=== PATIENT | female | born 1965 | race American Indian/Alaskan Native ===

== ENCOUNTER 2019-08-14 20:51 | Observation (INO) | payer MEDICAID ==
[2019-08-14] MEDS ORDERED: HYDROmorphone 1 MG/ML Syringe IVPUSH ONE (21:29)
--- NOTE | 2019-08-14 21:35 | EDM.PDOC ---
ED HPI GENERAL MEDICAL PROBLEM - General Chief Complaint: Lower Extremity Injury/Pain Stated Complaint: FALL Time Seen by Provider: 08/14/19 21:00 Source of Information: Reports: Patient History Limitations: Reports: No Limitations - History of Present Illness INITIAL COMMENTS - FREE TEXT/NARRATIVE: Pt. states that she fell down the last step at her house and fell onto her L knee. She states that she was unable to move the extremity after the fall. EMS was summoned. She was given fentanyl 100mcg IV for pain control. She denies striking her head. No neck pain. She denies any chest pain, shortness of breath, or LOC prior to the fall; it was a purely mechanical fall. Pt. denies any numbness/tingling in the extremity. Onset: Today Location: Reports: Lower Extremity, Left Quality: Reports: Sharp, Throbbing - Related Data Allergies Allergy/AdvReac Type Severity Reaction Status Date / Time No Known Allergies Allergy Verified 08/14/19 21:09 Home Meds: Home Meds Budesonide/Formoterol [Symbicort 160-4.5 MCG] 2 puff INH BID 08/14/19 [History] Levothyroxine [Synthroid] 50 mcg PO DAILY 08/14/19 [History] Montelukast [Singulair] 10 mg PO BEDTIME 08/14/19 [History] Review of Systems - Review of Systems Review Of Systems: ROS reveals no pertinent complaints other than HPI. ED EXAM, GENERAL - Physical Exam Exam: See Below Exam Limited By: No Limitations General Appearance: Alert, WD/WN, No Apparent Distress Extremities: Other (edema noted to L knee. Area is exquisitely tender to palpation.) Neurological: Alert, Oriented, CN II-XII Intact, Normal Cognition, Normal Gait, Normal Reflexes, No Motor/Sensory Deficits Skin Exam: Warm, Dry, Intact, Normal Color, No Rash Course - Vital Signs Last Recorded V/S: Last Vital Signs Temp 36.2 C 08/14/19 21:12 Pulse 83 08/14/19 21:12 Resp 14 08/14/19 21:12 BP 155/83 H 08/14/19 21:12 Pulse Ox 94 L 08/14/19 21:12 - Orders/Labs/Meds Orders: Active Orders 24 hr Category Date Time Status Patient Status [ADT] Routine ADT 08/14/19 21:22 Ordered Knee 3V Lt [CR] Stat Exams 08/14/19 20:58 Ordered HYDROmorphone [Dilaudid] Med 08/14/19 21:29 Once 1 mg IVPUSH ONETIME ONE Departure - Departure Time of Disposition: 21:37 Disposition: Refer to Observation Clinical Impression: Tibia/fibula fracture - Discharge Information - Problem List Review Problem List Initiated/Reviewed/Updated: Yes - My Orders Last 24 Hours: My Active Orders 08/14/19 20:58 Knee 3V Lt [CR] Stat 08/14/19 21:22 Patient Status [ADT] Routine 08/14/19 21:29 HYDROmorphone [Dilaudid] 1 mg IVPUSH ONETIME ONE - Assessment/Plan Last 24 Hours: My Active Orders 08/14/19 20:58 Knee 3V Lt [CR] Stat 08/14/19 21:22 Patient Status [ADT] Routine 08/14/19 21:29 HYDROmorphone [Dilaudid] 1 mg IVPUSH ONETIME ONE Plan: [facility] due to [facility]. Pt. will be admitted for pain control and transferred once it is open again. Will start norco 10/325mg every 4 hours for pain, dilaudid 1 mg every 4 hours for severe breakthrough pain. She was placed in a knee immobilizer. She is a code 1.
[2019-08-14] MEDS ORDERED: HYDROmorphone 1 MG/ML Syringe IVPUSH PRN (21:46)
--- NOTE | 2019-08-14 22:26 | CR ---
[id number] RAD/RAD Knee Left 3V EXAM: RAD Knee Left 3V CLINICAL DATA: TRAUMA COMPARISON: NO PREVIOUS SIMILAR EXAM IS AVAILABLE. FINDINGS: A diastatic comminuted proximal left tibial metaphyseal fracture is seen with an associated fibular neck fracture. IMPRESSION: DIASTATIC COMMINUTED PROXIMAL LEFT TIBIAL FRACTURE Brian Xie MD 08/15/19 2603 Thank you for allowing us to participate in the care of your patient.
[2019-08-14] MEDS: Ondansetron 4 MG Tab.DIS PO PRN (22:31)
[2019-08-14] MEDS: Acetaminophen/HYDROcodone 325-10 MG Tab PO PRN (22:31)
[2019-08-15] MEDS ORDERED: Prochlorperazine 10 MG/2 ML SDV IVPUSH PRN (01:04)
[2019-08-15] MEDS: Acetaminophen/HYDROcodone 325-10 MG Tab PO PRN (06:25)
[2019-08-15] MEDS: Ondansetron 4 MG Tab.DIS PO PRN (06:25)
[2019-08-15] MEDS ORDERED: Albuterol 0.083% 2.5 MG/3 ML Neb Soln NEB PRN (06:45)
[2019-08-15] MEDS ORDERED: Levothyroxine 50 MCG Tab PO SCH (07:00)
[2019-08-15] MEDS ORDERED: Budesonide 0.5 MG/2 ML Neb Susp NEB SCH (07:00)
[2019-08-15 08:02] LABS: ANION GAP 14.4 mmol/L (10-20); CHLORIDE,CL 102 mmol/L (54-184); SODIUM,NA 139 mmol/L (69-191)
--- NOTE | 2019-08-15 12:05 | PCM.DCSUM1 ---
Discharge Summary - Hospital Course Free Text/Narrative:: Pt. was admitted overnight for pain control with L proximal tib/fib fx. She was unable to be transferred due to weather. CT was performed this AM and sent to [place] [facility]. She states that her pain is controlled with oral norco and dilaudid for breakthru pain. The weather is clearing and EMS will be transporting her to [facility]. Dr. Verma is accepting. - Discharge Data Discharge Date: 08/15/19 Discharge Disposition: Home, Self-Care 01 Condition: Good - Referral to Home Health Primary Care Physician: PCP Not In Area - Discharge Diagnosis/Problem(s) (1) Tibia/fibula fracture SNOMED Code(s): 982787620 ICD Code: S82.209A - UNSP FRACTURE OF SHAFT OF UNSP TIBIA, INIT FOR CLOS FX; S82.409A - UNSP FRACTURE OF SHAFT OF UNSP FIBULA, INIT FOR CLOS FX Status: Acute Current Visit: Yes - Discharge Plan Home Medications: Home Meds Budesonide/Formoterol [Symbicort 160-4.5 MCG] 2 puff INH BID 08/14/19 [History] Levothyroxine [Synthroid] 50 mcg PO DAILY 08/14/19 [History] Montelukast [Singulair] 10 mg PO BEDTIME 08/14/19 [History] Forms: ED Department Discharge, Interfacility Transfer EMTALA Referrals: PCP,Not In Area [Primary Care Provider] - - Discharge Summary/Plan Comment DC Time >30 min.: Yes - General Info Date of Service: 08/15/19 Functional Status: Reports: Pain Controlled - Review of Systems General: Reports: No Symptoms HEENT: Reports: No Symptoms Pulmonary: Reports: No Symptoms Cardiovascular: Reports: No Symptoms Gastrointestinal: Reports: No Symptoms Genitourinary: Reports: No Symptoms Musculoskeletal: Reports: Leg Pain Skin: Reports: No Symptoms Neurological: Reports: No Symptoms Psychiatric: Reports: No Symptoms - Patient Data Vitals - Most Recent: Last Vital Signs Temp 35.9 C 08/15/19 05:44 Pulse 89 08/15/19 05:44 Resp 18 08/15/19 05:44 BP 111/77 08/15/19 05:44 Pulse Ox 94 L 08/15/19 05:44 Weight - Most Recent: 102.058 kg I&O - Last 24 hours: Intake & Output 08/14/19 08/15/19 08/15/19 22:59 06:59 14:59 Intake Total 400 300 Output Total 800 Balance 400 -500 Lab Results - Last 24 hrs: Laboratory Results - last 24 hr 08/15/19 08/15/19 08/15/19 Range/Units 07:28 07:28 07:28 WBC 10.2 H (4.0-10.0) x10^3/uL RBC 4.08 (4.00-5.50) x10^6/uL Hgb 12.3 (12.0-16.0) g/dL Hct 36.5 (33.0-47.0) % MCV 89.5 (78.0-93.0) fL MCH 30.1 (26.0-32.0) pg MCHC 33.7 (32.0-36.0) g/dL RDW Coeff of Tom 13.1 (10.0-15.0) % Plt Count 234 (130-400) x10^3/uL Neut % (Auto) 75.9 (50.0-80.0) % Lymph % (Auto) 14.2 L (25.0-50.0) % [place] % (Auto) 9.7 (2.0-11.0) % Eos % (Auto) 0.1 (0.0-4.0) % Baso % (Auto) 0.1 L (0.2-1.2) % PT 10.4 (10.0-12.8) SEC INR 0.9 L (2.0-3.5) Sodium 139 (69-191) mmol/L Potassium 4.4 (1.5-9.9) mmol/L Chloride 102 (54-184) mmol/L Carbon Dioxide 27 (21-32) mmol/L Anion Gap 14.4 (10-20) mmol/L BUN 12 (7-18) mg/dL Creatinine 0.6 (0.55-1.02) mg/dL Est Cr Clr Drug Dosing 98.69 mL/min Estimated GFR (MDRD) > 60 Glucose 127 H (74-106) mg/dL Calcium 8.4 L (8.5-10.1) mg/dL Corrected Calcium 9.04 (8.5-10.1) mg/dL Total Bilirubin 0.5 (0.2-1.0) mg/dL AST 24 (15-37) U/L ALT 27 (14-59) U/L Alkaline Phosphatase 103 (46-116) U/L Total Protein 7.2 (6.4-8.2) g/dL Albumin 3.2 L (3.4-5.0) g/dL Globulin 4.0 Albumin/Globulin Ratio 0.80 Med Orders - Current: Current Medications Hydrocodone Bitart/Acetaminophen ([place] 325-10 Mg) 1 tab PO Q3H PRN PRN Reason: Pain (moderate 4-6) Last Admin: 08/15/19 06:25 Dose: 1 tab Albuterol (Proventil Neb Soln) 2.5 mg NEB QIDRT PRN PRN Reason: Shortness of Breath Last Admin: 08/15/19 07:36 Dose: 2.5 mg Budesonide (Pulmicort) 0.5 mg NEB BIDRT CHARAN Last Admin: 08/15/19 07:36 Dose: 0.5 mg Hydromorphone HCl (Dilaudid) 1 mg IVPUSH Q4H PRN PRN Reason: Pain Last Admin: 08/15/19 00:51 Dose: 1 mg Levothyroxine Sodium (Synthroid) 50 mcg PO ACBREAKFAST CHARAN Last Admin: 08/15/19 06:25 Dose: 50 mcg Montelukast Sodium (Singulair) 10 mg PO BEDTIME CHARAN Ondansetron HCl (Zofran Odt) 4 mg PO Q6H PRN PRN Reason: Nausea/Vomiting Last Admin: 08/15/19 06:25 Dose: 4 mg Prochlorperazine Edisylate (Compazine) 5 mg IVPUSH Q4H PRN PRN Reason: Nausea Last Admin: 08/15/19 01:20 Dose: 5 mg Discontinued Medications Hydromorphone HCl (Dilaudid) 1 mg IVPUSH ONETIME ONE Stop: 08/14/19 21:30 Last Admin: 08/14/19 21:37 Dose: 1 mg - Exam General: Reports: Alert, Oriented Lungs: Reports: Clear to Auscultation, Normal Respiratory Effort Cardiovascular: Reports: Regular Rate, Regular Rhythm GI/Abdominal Exam: Normal Bowel Sounds, Soft, Non-Tender, No Organomegaly, No Distention, No Mass, Pelvis Stable (Female) Exam: Deferred Rectal (Female) Exam: Deferred Back Exam: Reports: Normal Inspection, Full Range of Motion Extremities: Joint Swelling Skin: Reports: Warm, Dry, Intact Neurological: Reports: No New Focal Deficit Psy/Mental Status: Reports: Alert, Normal Affect, Normal Mood
--- NOTE | 2019-08-15 12:21 | CT ---
[id number] CT/CT Tibia Fibula Left WO IV Exam: CT Tibia Fibula Left WO IV Clinical Data: LEFT TIBIAL AND FIBULAR FRACTURES COMPARISON: CORRELATION IS MADE WITH THE EARLIER PLAIN FILMS FINDINGS: The comminuted proximal left tibial metaphyseal fracture has about 2 cm diastases of major fracture fragments The lateral tibial plateau is not depressed There is minimal posterior displacement of the distal left fibular fracture fragment IMPRESSION: DIASTATIC NATURE COMMINUTED PROXIMAL LEFT TIBIAL FRACTURE WITHOUT OBVIOUS DEPRESSION Brian Xie MD 08/15/19 1041 Thank you for allowing us to participate in the care of your patient.
[2019-08-15] MEDS ORDERED: Montelukast 10 MG Tab PO SCH (20:00)
== END 2019-08-15 12:50 | disposition home or self-care (01) ==
LOC: SUPCPDRO 20:51 → VM.ED 20:51 → VM.MS 21:22
PROVIDERS: ADMIT Physician Assistant; ATTEND Physician Assistant
DX: S82.252A Displaced comminuted fracture of shaft of left tibia, initial encounter for closed fracture (principal); W10.8XXA Fall (on) (from) other stairs and steps, initial encounter; Y92.009 Unspecified place in unspecified non-institutional (private) residence as the place of occurrence of the external cause
CPT/HCPCS: 36415; 73562-LT; 73700-LT; 80053; 85025; 85610; 94640; 96374; 96375; 96376; 99217; 99219; 99284-25; A9270-GY; G0378; J0780; J1170; J7613-GY

== ENCOUNTER 2023-06-10 16:53 | Emergency (ER) | payer MEDICAID ==
[2023-06-10 17:42] LABS: HEMOGLOBIN 13.6 g/dL (12.0-16.0); MEAN CORPUSCULAR HEMOGLOBIN 30.3 pg (26.0-32.0); MEAN CORPUSCULAR HGB CONC 34.9 g/dL (32.0-36.0); MEAN CORPUSCULAR VOLUME 86.9 fL (78.0-93.0); PLATELET COUNT,PLT 187 x10^3/uL (130-400); RED BLOOD CELL COUNT 4.49 x10^6/uL (4.00-5.50)
[2023-06-10 17:48] LABS: WHITE BLOOD CELL COUNT,WBC 20.6 x10^3/uL (4.0-10.0)
[2023-06-10] MEDS: Acetaminophen 325 MG Tab PO ONE (17:54)
[2023-06-10] MEDS: Sodium Chloride 0.9% 1,000 ML IV ONE (17:54)
[2023-06-10 18:04] LABS: A/G RATIO 0.59; ALANINE AMINOTRANSFERASE,ALT 88 U/L (14-59); ALBUMIN 2.9 g/dL (3.4-5.0); ALKALINE PHOSPHATASE 190 U/L (46-116); ASPARTATE AMNIOTRANSFERASE,AST 68 U/L (15-37); BILIRUBIN TOTAL 1.3 mg/dL (0.2-1.0); BLOOD UREA NITROGEN,BUN 14 mg/dL (7-18); CALCIUM 9.3 mg/dL (8.5-10.1); CARBON DIOXIDE,CO2 27 mmol/L (21-32); CHLORIDE,CL 95 mmol/L (98-107); CREATININE 0.8 mg/dL (0.55-1.02); GLUCOSE RANDOM 142 mg/dL (70-99); LIPASE 18 U/L (19-71); POTASSIUM,K 3.2 mmol/L (3.5-5.1); PROTEIN TOTAL,TP 7.8 g/dL (6.4-8.2); SODIUM,NA 133 mmol/L (136-145)
[2023-06-10 18:06] LABS: ANION GAP 14.2 mmol/L (5-15); ESTIMATED GFR 86 mL/min (>=60)
[2023-06-10 18:10] LABS: BAND PERCENT MAN 4 % (0-6); HYPERSEGMENTED NEUTROPHILS RARE; LYMPHOCYTES ABSOLUTE MAN 0.8 x10^3/uL (1.0-4.8); LYMPHOCYTES PERCENT MAN 4 % (25-50); MONOCYTES ABSOLUTE MAN 2.5 x10^3/uL (0.0-0.8); MONOCYTES PERCENT MAN 12 % (2-11); NEUTROPHILS ABSOLUTE MAN 17.3 x10^3/uL (1.8-7.7); PLATELET COUNT ESTIMATE ADEQUATE; SEG NEUTROPHILS PERCENT MAN 80 % (50-80); TOXIC GRANULATION 1+ SLIGHT; VACUOLATED NEUTROPHILS 1+ SLIGHT
[2023-06-10 18:15] LABS: C-REACTIVE PROTEIN 36.13 mg/dL (<=0.30)
[2023-06-10] MEDS: Iopamidol 612 MG/ML 100 ML Bottle IVPUSH ONE (18:41)
[2023-06-10] MEDS: Sodium Chloride 0.9% 10 ML Syringe FLUSH PRN (20:21)
[2023-06-10] MEDS: cefTRIAXone 2 GM Vial IVPUSH ONE (20:22)
[2023-06-10 20:31] VITALS: BP 109/72; PULSE 85
[2023-06-10 20:44] LABS: APPEARANCE,URINE CLEAR (CLEAR); BILIRUBIN,URINE NEGATIVE (NEGATIVE); COLOR,URINE DARK YELLOW (YELLOW); GLUCOSE,URINE NEGATIVE (NEGATIVE); KETONES,URINE NEGATIVE (NEGATIVE); LEUKOCYTE ESTERASE,URINE NEGATIVE (NEGATIVE); NITRITE,URINE NEGATIVE (NEGATIVE); OCCULT BLOOD,URINE MODERATE (NEGATIVE); PROTEIN,URINE 100 mg/dL (NEGATIVE)
[2023-06-10 20:52] LABS: RBC,URINE 0-5 /HPF (NOT SEEN); WBC,URINE 0-5 /HPF (NOT SEEN)
[2023-06-10 20:53] LABS: AMORPHOUS SEDIMENT,URINE RARE; BACTERIA,URINE NOT SEEN /HPF (NOT SEEN); MUCUS,URINE RARE /LPF (NOT SEEN); SQUAMOUS EPITHELIAL CELLS,UR RARE /HPF (NOT SEEN)
[2023-06-10] MEDS: Sodium Chloride 0.9% 1,000 ML IV SCH (22:20)
== END 2023-06-10 22:51 | disposition short-term general hospital (02) ==
LOC: VM.ED 16:53
DX: K80.10 Calculus of gallbladder with chronic cholecystitis without obstruction (principal); J45.909 Unspecified asthma, uncomplicated; E03.9 Hypothyroidism, unspecified; Z86.16 Personal history of COVID-19; Z79.899 Other long term (current) drug therapy
CPT/HCPCS: 36415; 74177; 80053; 81001; 83605; 83690; 84145; 85025; 86140; 87040; 96361; 96374; 99284; 99285-25; A9270-GY; J0696; J3490; J7030; Q9967